=== PATIENT | female | born 1990 | race African-American/Black ===

== ENCOUNTER 2020-05-31 17:42 | Emergency (ER) | payer OTHER ==
[~2020-05-31] VITALS: Ht 165.1 cm; Wt 127.0 kg
[~2020-05-31 17:42] MED LIST: BACTRIM DS TAB1 EACH PO; EXCEDRIN MIGRA1 EAC1 PO; KEFLEX500 MG PO; NOHOMEMEDICATIONS
[2020-05-31 17:53] VITALS: BP 183/96
[2020-05-31] MEDS ORDERED: BACTRIM DS TAB1 EACH PO (18:38)
[2020-05-31] MEDS ORDERED: KEFLEX500 M1 PO (18:38)
== END 2020-05-31 18:32 | disposition home or self-care (01) ==
LOC: ER 17:42
DX: R21 Rash and other nonspecific skin eruption (principal); I10 Essential (primary) hypertension; F17.210 Nicotine dependence, cigarettes, uncomplicated